=== PATIENT | female | born 1985 | race African-American/Black ===

== ENCOUNTER 2025-04-10 15:37 | Emergency (ER) | payer BC, OTHER | END 2025-04-10 17:38 | disposition home or self-care (01) | LOC: ERS 15:37 | DX: J18.9 Pneumonia, unspecified organism (principal); F17.210 Nicotine dependence, cigarettes, uncomplicated | CPT/HCPCS: 71045; 87428 ==

== ENCOUNTER 2025-05-16 05:25 | Emergency (ER) | payer OTHER ==
[2025-05-16] MEDS ORDERED: Ketorolac Tromethamine 30 MG (1 mL) VIAL ONE (06:24)
[2025-05-16] MEDS ORDERED: Dexamethasone 10 MG/ML VIAL ONE (06:25)
[2025-05-16] MEDS ORDERED: Metoclopramide HCl 10 MG (2 mL) VIAL ONE (06:25)
== END 2025-05-16 08:17 | disposition home or self-care (01) ==
LOC: ERS 05:25
DX: J18.9 Pneumonia, unspecified organism (principal); F17.210 Nicotine dependence, cigarettes, uncomplicated
CPT/HCPCS: 71045; 87428; 96365; 96375; J1100; J1885; J2765